=== PATIENT | male | born 1965 | race Caucasian/White ===

== ENCOUNTER 2017-03-02 19:09 | Emergency (ER) ==
[2017-03-02 19:27] VITALS: BP 122/78; TEMP 97.8; BMI 22.4
[2017-03-02 19:29] LABS: BILIRUBIN,URINE Negative (NEGATIVE); KETONES,URINE Negative (NEGATIVE); LEUKOCYTE ESTERASE ,URINE Trace (NEGATIVE); NITRITE,URINE Negative (NEGATIVE); PH,URINE 5.5 (5-9); PROTEIN,URINE Negative (NEGATIVE); URINE, BLOOD Negative (NEGATIVE)
[2017-03-02 19:35] LABS: ADD URINE MICROSCOPIC YES; BACTERIA,URINE TRACE (NOT PRESENT)
[2017-03-02 19:37] LABS: COCAIN SCREEN,URINE NEGATIVE (NEGATIVE)
[2017-03-02 19:45] LABS: BASOPHILS # (AUTO) 0.1 K/uL (0-0.2); BASOPHILS % (AUTO) 0.5 % (0.0-3.0); HEMATOCRIT 41.2 % (42.0-52.0); HEMOGLOBIN 14.1 g/dl (14.0-18.0); IMMATURE GRANULOCYTE % (AUTO) 0.2 % (0.0-5.0); LYMPHOCYTES # (AUTO) 4.8 K/uL (0.60-3.4); LYMPHOCYTES % (AUTO) 47.8 (10.0-50.0); MEAN CORPUSCULAR HEMOGLOBIN 29.9 pg (27.0-31.0); MEAN CORPUSCULAR HGB CONC 34.2 (31.8-35.4); MEAN CORPUSCULAR VOLUME 87.5 fl (80.0-94.0); MONOCYTES # (AUTO) 0.7 K/uL (0.4-2.0); MONOCYTES % (AUTO) 7.3 (0-10); NEUTROPHILS # (AUTO) 4.4 K/ul (2.0-6.9); NEUTROPHILS % (AUTO) 44.2; PLATELET COUNT 273 10^3/uL (140-440); RED BLOOD COUNT 4.71 10^6/ul (4.70-6.10); WHITE BLOOD COUNT 9.95 K/ul (4.2-10.2)
[2017-03-02 20:05] LABS: ALBUMIN 3.8 g/dL (3.4-5.0); ALBUMIN/GLOBULIN RATIO 1.12; BILIRUBIN,TOTAL 0.16 mg/dL (0.00-1.20); CALCIUM 9.1 mg/dL (8.2-10.2); CREATININE 0.94 mg/dL (0.60-1.10); TOTAL PROTEIN 7.2 g/dL (6.4-8.2)
[2017-03-02 20:06] LABS: BUN/CREATININE RATIO 15.95
--- NOTE | 2017-03-02 20:14 | ED.PDOC ---
General ED Provider: Dr. ARLETTE CERDA-ER Chief Complaint: Psychiatric Complaint Stated Complaint: i was told i didnt have long to live--i want to kill myself Time Seen by Physician: 19:15 Mode of Arrival: Walk-In Information Source: Patient, Police Exam Limitations: No limitations Nursing and Triage Documentation Reviewed and Agree: Yes Psychological Complaint Exam - Psychiatric Complaint/Exam Patient Complains Of: Present: Depression, Suicidal thoughts Onset/Duration: unkown Symptoms Are: Still present Timing: Constant Episodes Lasting: Hours Initial Severity: Moderate Current Severity: Moderate Character: Present: Depressed, Fearful, Anxious, Angry, Frustrated. Absent: Manic Aggravating: Reports: Recent stress, Alcohol use, Drug use Associated Signs And Symptoms: Reports: Hostile, Sleep disturbance. Denies: Confused, Hallucinating, Paranoid behavior, Appetite change Related History: Reports: Suicidal thoughts, Recent stressors, Drug ingestion. Denies: Suicidal plan, Suicidal gestures, Homicidal thoughts, Homicidal plan, Homicidal gestures Completed Suicide Risk Factors: Male, Patient Accompanied By: Police Patient In Custody Of Police: No Social Withdrawal Present: No Social Isolation Present: No Prior Suicide Attempt: No Injury From Prior Suicide Attempt: No Related Surgical History: Reports: None Patient Uncooperative For Exam: Yes Mood: Present: Depressed, Angry, Guarded, Agitated, Anxious Appearance: Present: Clean Thought Process: Present: Logical Insight: Present: Poor Memory: Intact Judgement: Normal Patient Medically Stable For: Psych evaluation, Referral, Transfer Differential Diagnoses: Bipolar Disorder, Depression, Intentional Drug OD, ETOH Intoxication, Suicide Attempt, Suicidal Ideation, Suicidal Gesture Review of Systems - Review Of Systems Constitutional: Reports: No symptoms Eyes: Reports: No symptoms Ears, Nose, Mouth, Throat: Reports: No symptoms Respiratory: Reports: No symptoms Cardiac: Reports: No symptoms GI: Reports: No symptoms : Reports: No symptoms Musculoskeletal: Reports: No symptoms Skin: Reports: No symptoms Neurological: Reports: No symptoms Endocrine: Reports: No symptoms Hematologic/Lymphatic: Reports: No symptoms All Other Systems: Reviewed and Negative Past Medical History - Past Medical History Endocrine: Reports: Unknown Cardiovascular: Reports: Unknown Respiratory: Reports: Unknown Hematological: Reports: Unknown Gastrointestinal: Reports: Unknown Genitourinary: Reports: Unknown Neuro/Psych: Reports: Unknown Musculoskeletal: Reports: Unknown Cancer: Reports: Unknown - Surgical History General Surgical History: Reports: Unknown - Family History Family History: Reports: Unknown - Social History Smoking Status: Current every day smoker Hx Substance Use: Yes (METHAMPHETAMINE) Alcohol Screening: Heavy - Immunizations Tetanus Shot up to Date: Yes Physical Exam - Physical Exam Appearance: Well-appearing, No pain distress, Well-nourished Eyes: ILANA, EOMI, Conjunctiva clear ENT: Ears normal, Nose normal, Oropharynx normal Neck: Supple Respiratory: Airway patent, Breath sounds clear, Breath sounds equal, Respirations nonlabored Cardiovascular: RRR, Pulses normal, No rub, No murmur GI/: Soft, Nontender, No masses, Bowel sounds normal, No Organomegaly Musculoskeletal: Normal strength, ROM intact, No edema, No calf tenderness Skin: Warm, Dry, Normal color Neurological: Sensation intact, Motor intact, Reflexes intact, Cranial nerves intact, Alert, Oriented Psychiatric: Affect appropriate, Anxious, Depressed Critical Care Note - Critical Care Note Total Time (mins): 0 Course - Course Hematology/Chemistry: 03/02/17 19:45 03/02/17 23:20 Orders, Labs, Meds: Lab Review 03/02/17 03/02/17 03/02/17 19:22 19:45 23:20 WBC 9.95 RBC 4.71 Hgb 14.1 Hct 41.2 L MCV 87.5 MCH 29.9 MCHC 34.2 RDW Coeff of Jackie 13.3 Plt Count 273 Immature Gran % (Auto) 0.2 Neut % (Auto) 44.2 Lymph % (Auto) 47.8 [place] % (Auto) 7.3 Eos % (Auto) 0.0 Baso % (Auto) 0.5 Immature Gran # (Auto) 0.0 Neut # 4.4 Lymph # 4.8 H [place] # 0.7 Eos # 0.0 Baso # 0.1 Sodium 136 140 Potassium 4.0 4.1 Chloride 104 107 Carbon Dioxide 22 22 Anion Gap 14.0 15.1 BUN 15 14 Creatinine 0.94 0.90 Estimated GFR (MDRD) 85.00 90.00 BUN/Creatinine Ratio 15.95 15.55 Glucose 101 H 91 Calcium 9.1 9.3 Total Bilirubin 0.16 0.17 AST 17 18 ALT 21 21 Alkaline Phosphatase 58 57 Total Protein 7.2 7.4 Albumin 3.8 3.9 Globulin 3.4 3.5 Albumin/Globulin Ratio 1.12 1.11 TSH 0.739 Urine Color Yellow Urine Clarity Clear Urine pH 5.5 Ur Specific [place] <=1.005 Urine Protein Negative Urine Glucose (UA) Negative Urine Ketones Negative Urine Blood Negative Urine Nitrite Negative Urine Bilirubin Negative Urine Urobilinogen 0.2 Ur Leukocyte Esterase Trace Urine Microscopic WBC 0-2 Ur Squamous Epith Cells Not present Urine Bacteria Trace Salicylate Level mg/dL < 5.0 Urine Opiates Screen Negative Ur Oxycodone Screen Negative Urine Methadone Screen Negative Ur Propoxyphene Screen Negative Acetaminophen < 3 L Ur Barbiturates Screen Negative U Tricyclic Antidepress Negative Ur Phencyclidine Scrn Negative Ur Amphetamine Screen Negative U Methamphetamines Scrn Negative U Benzodiazepines Scrn Negative Urine Cocaine Screen Negative U Cannabinoids Screen Negative Plasma/Serum Alcohol 221.8 H 152.2 H Orders Category Date Time Status EKG-(ED ONLY) Stat CARDIO 03/02/17 19:10 Completed Poison Control [ED POISON CONTROL CONTACTED] .ONCE EMERGENCY 03/02/17 20:38 Active BLOOD ALCOHOL Stat LAB 03/02/17 19:45 Completed BLOOD ALCOHOL Timed LAB 03/02/17 23:20 Completed CBC W/ AUTO DIFF Stat LAB 03/02/17 19:45 Completed COMPREHENSIVE METABOLIC PANEL Stat LAB 03/02/17 19:45 Completed COMPREHENSIVE METABOLIC PANEL Timed LAB 03/02/17 23:20 Completed SALICYLATE Stat LAB 03/02/17 19:45 Completed TSH [THYROID STIMULATING HORMONE] Stat LAB 03/02/17 19:45 Completed TYLENOL LEVEL [ACETAMINOPHEN] Stat LAB 03/02/17 19:45 Completed URINALYSIS C & S IF INDICATED Stat LAB 03/02/17 19:22 Completed URINE DRUG SCREEN (RAPID FOR ED) [DRUG SCREEN, URINE, LAB 03/02/17 19:22 Completed RAPID] Stat Acetaminophen [Tylenol] MEDS 03/02/17 23:49 Discontinued 650 mg PO ONCE STA Medications Discontinued Medications Generic Name Dose Route Start Last Admin Trade Name Freq PRN Reason Stop Dose Admin Acetaminophen 650 mg 03/02/17 23:49 03/03/17 00:11 Tylenol PO 03/02/17 23:50 650 mg ONCE STA Administration Vital Signs: Temp Pulse Resp BP Pulse Ox 03/02/17 19:09 97.8 F 83 20 122/78 96 Departure - Departure Time of Disposition: 00:38 Disposition: TSF SHORT-TRM HOSP Discharge Problem: Psychiatric diagnosis, Intoxication Instructions: Abuse of Alcohol (ED) Condition: Good Pt referred to PMD for follow-up: Yes Allergies/Adverse Reactions: Allergies No Known Allergies Allergy (Verified 03/02/17 19:27) Home Medications: Ambulatory Orders 1 [No Reported Medications] 03/02/17 Transfer Form Completed: Yes Disposition Discussed With: Patient, Family
[2017-03-02 20:25] LABS: ACETAMINOPHEN < 3 ug/ml (10-30); SALICYLATE < 5.0 mg/dL (2.8-20.0)
[2017-03-02] MEDS ORDERED: TYLENOL PO STA (23:49)
[2017-03-02 23:50] LABS: ALBUMIN 3.9 g/dL (3.4-5.0); ALBUMIN/GLOBULIN RATIO 1.11; ANION GAP 15.1; BILIRUBIN,TOTAL 0.17 mg/dL (0.00-1.20); BUN/CREATININE RATIO 15.55; CALCIUM 9.3 mg/dL (8.2-10.2); CREATININE 0.9 mg/dL (0.60-1.10); POTASSIUM 4.1 mmol/L (3.5-5.1); TOTAL PROTEIN 7.4 g/dL (6.4-8.2)
== END 2017-03-03 05:00 | disposition short-term general hospital (02) ==
LOC: ED 19:09
DX: F99 Mental disorder, not otherwise specified (principal); F10.129 Alcohol abuse with intoxication, unspecified; F17.210 Nicotine dependence, cigarettes, uncomplicated
CPT/HCPCS: 36415; 80053; 80306; 80307; 81001; 84443; 85025; 93005; 93010; 99285

== ENCOUNTER 2017-08-17 16:47 | Outpatient (CLI) | END 2017-08-17 16:48 | disposition short-term general hospital (02) | LOC: AMBL 16:47 | PROVIDERS: ATTEND Internal Medicine Geriatric Medicine | DX: R45.851 Suicidal ideations (principal); R44.0 Auditory hallucinations; R26.2 Difficulty in walking, not elsewhere classified ==

== ENCOUNTER 2017-09-10 14:53 | Emergency (ER) ==
[2017-09-10 15:05] VITALS: BP 140/97; TEMP 97.1; BMI 21.9
[2017-09-10 15:22] LABS: BASOPHILS # (AUTO) 0.1 K/uL (0-0.2); BASOPHILS % (AUTO) 0.4 % (0.0-3.0); HEMOGLOBIN 15.1 g/dl (14.0-18.0); IMMATURE GRANULOCYTE % (AUTO) 0.4 % (0.0-5.0); LYMPHOCYTES # (AUTO) 2.7 K/uL (0.60-3.4); LYMPHOCYTES % (AUTO) 20.7 (10.0-50.0); MEAN CORPUSCULAR HEMOGLOBIN 30.7 pg (27.0-31.0); MEAN CORPUSCULAR HGB CONC 35.1 (31.8-35.4); MEAN CORPUSCULAR VOLUME 87.4 fl (80.0-94.0); MONOCYTES # (AUTO) 1.2 K/uL (0.4-2.0); MONOCYTES % (AUTO) 9.4 (0-10); NEUTROPHILS % (AUTO) 69.1; PLATELET COUNT 223 10^3/uL (140-440); RED BLOOD COUNT 4.92 10^6/ul (4.70-6.10); WHITE BLOOD COUNT 13.03 K/ul (4.2-10.2)
[2017-09-10 15:41] LABS: BILIRUBIN,URINE 2+ (NEGATIVE); KETONES,URINE 1+ (NEGATIVE); LEUKOCYTE ESTERASE ,URINE Negative (NEGATIVE); NITRITE,URINE Negative (NEGATIVE); PH,URINE 5.5 (5-9); PROTEIN,URINE 3+ (NEGATIVE); URINE, BLOOD Trace-lysed (NEGATIVE)
[2017-09-10 15:42] LABS: ALBUMIN 4.2 g/dL (3.4-5.0); ALBUMIN/GLOBULIN RATIO 0.88; ANION GAP 20.1; BILIRUBIN,TOTAL 0.67 mg/dL (0.00-1.20); BUN/CREATININE RATIO 12.34; CALCIUM 10.5 mg/dL (8.2-10.2); CREATININE 1.62 mg/dL (0.60-1.10); POTASSIUM 4.1 mmol/L (3.5-5.1)
--- NOTE | 2017-09-10 15:49 | DI ---
EXAM: CHEST FRONTAL AND LATERAL VIEWS HISTORY: Cough. COMPARISON: None FINDINGS: Heart size and mediastinal contour within normal limits. No acute infiltrates. Normal vascularity with no pleural fluid or pneumothorax. The bony thorax has no acute finding. IMPRESSION: No acute process.
[2017-09-10 15:51] LABS: ADD URINE MICROSCOPIC YES
[2017-09-10 15:54] LABS: BACTERIA,URINE 1+ (NOT PRESENT); GRANULAR CASTS,URINE 0-2 (NOT PRESENT)
--- NOTE | 2017-09-10 16:27 | CT ---
EXAM: CT chest without contrast HISTORY: Cough COMPARISON: None TECHNIQUE: CT chest performed without intravenous contrast. Coronal and sagittal reformatted images obtained. FINDINGS: The thyroid and thoracic inlet appear normal. Heart normal in size. Coronary calcificati ons. No pericardial effusion. Aorta normal in caliber. Evaluation for lymphadenopathy limited with out contrast. No lymphadenopathy identified. Esophagus unremarkable. No acute abnormalities of the bones. Degenerative change in the spine. Please see separate report CT abdomen pelvis regarding fi ndings in the upper abdomen with right kidney not visualized, likely surgically absent. Central airw ay patent. No airspace consolidation. No pleural effusion. No pneumothorax. There is a 8 mm pulmo nary nodule right lung image 37. 3 mm pulmonary nodule left lung image 47. 5 mm pulmonary nodule rig ht lung image 39 appears linear on coronal imaging may represent fissural lymph node. IMPRESSION: 1. No acute cardiopulmonary process. 2. Several pulmonary nodules measuring up to [address] chest follow-up is recommended in 4 - 6 month s for reevaluation. Report faxed at time of dictation.
--- NOTE | 2017-09-10 16:31 | CT ---
Exam: CT of the abdomen and pelvis without intravenous contrast. Comparison: None available. Reason for exam: Pain with history of renal cancer. FINDINGS: Image interpretation is limited by the lack of intravenous contrast administration. 3 mm pleural-based nodule in the left lower lobe on axial image #3. No focal consolidation or pleura l effusion in the partially imaged lung bases. The liver, gallbladder, spleen, and left adrenal gland appear grossly unremarkable within limitations of a noncontrasted study. The right kidney and right adrenal gland have been removed. Atherosclerotic disease is seen within the aorta and distal arterial vasculature. No focal small bowel dilatation or transition point. There is a moderately-sized periumbilical hernia without evidence of obstruction. The appendix appear s grossly unremarkable. No intra-abdominal free air or pelvic free fluid. The bladder appears grossly unremarkable. No suspicious appearing lymph node enlargement. Degenerative disease is seen in the lumbosacral spine with intervertebral body disc space height loss at L5-S1. No suspicious appearing osteoblastic or osteolytic lesions. Impression: 1. No acute imaging findings are seen within the abdomen or pelvis. 2. 3 mm pleural-based nodule in the left lower lobe on axial image #3. Recommend follow up imaging and 3 months to document stability given patient history. 3. No imaging evidence is seen to suggest local recurrent or metastatic disease although evaluation is limited by the lack of intravenous contrast administration.
--- NOTE | 2017-09-10 16:40 | ED.PDOC ---
General ED Provider: Dr. ZOFIA IRIZARRY Chief Complaint: Non-specific Complaint Stated Complaint: 30pound weight loss Time Seen by Physician: 15:00 Mode of Arrival: Walk-In Information Source: Patient Exam Limitations: No limitations Nursing and Triage Documentation Reviewed and Agree: Yes Miscellaneous Complaint Exam - Complex/Multi-System Complaint/Exam Onset/Duration: 8 days , Symptoms Are: Still present Episodes Lasting: Days Initial Severity: Mild Current Severity: Mild Location of Pain: no pain Associated Signs and Symptoms: Reports: Cough, Vomiting, Diarrhea Recent Echo/LV Function: No Respiratory Distress: None JVD Present: No Tachypnea Present: No Stridor Present: No Abdominal Findings: Present: Normal findings Glascow Coma Scale (see protocol): 15 Meningeal Signs Positive: No Focal Weakness: Present: None Focal Sensory Loss: Present: None Gait: Normal Gag Reflex Present: Yes Differential Diagnosis: Other (renal mets ) Review of Systems - Review Of Systems Constitutional: Reports: Malaise ( weight loss in 8 months 30 pounds ) Eyes: Reports: No symptoms Ears, Nose, Mouth, Throat: Reports: No symptoms Respiratory: Reports: No symptoms Cardiac: Reports: No symptoms GI: Reports: Nausea, Vomiting : Reports: No symptoms Musculoskeletal: Reports: No symptoms Skin: Reports: No symptoms Neurological: Reports: No symptoms Endocrine: Reports: No symptoms Hematologic/Lymphatic: Reports: No symptoms All Other Systems: Reviewed and Negative Past Medical History - Past Medical History Previously Healthy: Yes Endocrine: Reports: Unknown Cardiovascular: Reports: Unknown Respiratory: Reports: Unknown Hematological: Reports: Unknown Gastrointestinal: Reports: Unknown Genitourinary: Reports: Unknown Neuro/Psych: Reports: Unknown Musculoskeletal: Reports: Unknown Cancer: Reports: Unknown - Surgical History General Surgical History: Reports: Unknown - Family History Family History: Reports: Unknown - Social History Smoking Status: Current every day smoker Hx Substance Use: Yes (METHAMPHETAMINE) Alcohol Screening: Heavy Physical Exam - Physical Exam Appearance: Well-appearing, No pain distress, Well-nourished Eyes: ILANA, EOMI, Conjunctiva clear ENT: Ears normal, Nose normal, Oropharynx normal Respiratory: Airway patent, Breath sounds clear, Breath sounds equal, Respirations nonlabored Cardiovascular: RRR, Pulses normal, No rub, No murmur GI/: Soft, Nontender, No masses, Bowel sounds normal, No Organomegaly Musculoskeletal: Normal strength, ROM intact, No edema, No calf tenderness Skin: Warm, Dry, Normal color Neurological: Sensation intact, Motor intact, Reflexes intact, Cranial nerves intact, Alert, Oriented Psychiatric: Affect appropriate, Mood appropriate Critical Care Note - Critical Care Note Total Time (mins): 0 Course - Course Hematology/Chemistry: 09/10/17 15:15 09/10/17 15:15 Orders, Labs, Meds: Lab Review 09/10/17 09/10/17 09/10/17 15:15 15:15 15:35 WBC 13.03 H RBC 4.92 Hgb 15.1 Hct 43.0 MCV 87.4 MCH 30.7 MCHC 35.1 RDW Coeff of Jackie 14.2 Plt Count 223 Immature Gran % (Auto) 0.4 Neut % (Auto) 69.1 Lymph % (Auto) 20.7 [place] % (Auto) 9.4 Eos % (Auto) 0.0 Baso % (Auto) 0.4 Immature Gran # (Auto) 0.1 Neut # 9.0 H Lymph # 2.7 Evans # 1.2 Eos # 0.0 Baso # 0.1 Sodium 132 L Potassium 4.1 Chloride 98 Carbon Dioxide 18 L Anion Gap 20.1 BUN 20 H Creatinine 1.62 H Estimated GFR (MDRD) 45.00 BUN/Creatinine Ratio 12.34 Glucose 83 Calcium 10.5 H Total Bilirubin 0.67 AST 26 ALT 17 Alkaline Phosphatase 102 Total Protein 9.0 H Albumin 4.2 Globulin 4.8 Albumin/Globulin Ratio 0.88 Urine Color Dark Urine Clarity Turbid Urine pH 5.5 Ur Specific [place] >=1.030 Urine Protein 3+ Urine Glucose (UA) Negative Urine Ketones 1+ Urine Blood Trace-lysed Urine Nitrite Negative Urine Bilirubin 2+ Urine Urobilinogen 1.0 Ur Leukocyte Esterase Negative Urine Microscopic RBC 0-2 Urine Microscopic WBC 2-5 Ur Squamous Epith Cells 2-5 Calcium Oxalate Crystal Trace Amorphous Sediment 1+ Urine Bacteria 1+ Hyaline Casts 0-2 Granular Casts 0-2 Orders Category Date Time Status CBC W/ AUTO DIFF Stat LAB 09/10/17 15:15 Completed COMPREHENSIVE METABOLIC PANEL Stat LAB 09/10/17 15:15 Completed LYME, WESTERN BLOT, SERUM Stat LAB 09/10/17 15:15 Received URINALYSIS C & S IF INDICATED Stat LAB 09/10/17 15:35 Completed URINE CULTURE Routine LAB 09/10/17 15:57 Received CHEST, 2 VIEWS PA & LAT Stat RADS 09/10/17 14:[address] ABDOMEN/PELVIS WO CONTRAST Stat RADS 09/10/17 15:[address] CHEST W/O CONTRAST Stat RADS 09/10/17 15:40 Completed Vital Signs: Temp Pulse Resp BP Pulse Ox 09/10/17 14:54 97.1 F L 114 H 20 140/97 H 97 Departure - Departure Time of Disposition: 16:41 (PULMONARY NODULE DISCUSSED WITH PT UNDERSTANDS HE NEEDS FOLLOW UP SANCHEZ . ) Disposition: HOME SELF-CARE Discharge Problem: Pulmonary nodule CKD (chronic kidney disease) Qualifiers: Chronic kidney disease stage: unspecified stage Qualified Code(s): N18.9 - Chronic kidney disease, unspecified Instructions: Pulmonary Nodules (ED), Chronic Kidney Disease (ED) Condition: Good Pt referred to PMD for follow-up: Yes Additional Instructions: Please call your Family Physician as soon as possible to schedule a follow-up appointment. Allergies/Adverse Reactions: Allergies No Known Allergies Allergy (Verified 09/10/17 15:02) Home Medications: Ambulatory Orders 1 [No Reported Medications] 03/02/17 Ibuprofen 800 - 1,000 mg PO 1-2XD PRN 09/10/17
[2017-09-13 13:13] LABS: IGG P18 AB Absent (.); IGG P23 AB Absent (.); IGG P28 AB Absent (.); IGG P30 AB Absent (.); IGG P39 AB Absent (.); IGG P41 AB Absent (.); IGG P45 AB Absent (.); IGG P58 AB Absent (.); IGG P66 AB Absent (.); IGG P93 AB Absent (.); IGM P39 AB Absent (.); IGM P41 AB Absent (.); LYME IGG WB INTERP Negative (.); LYME IGM WB INTERP Negative (.)
== END 2017-09-10 16:58 | disposition home or self-care (01) ==
LOC: ED 14:53
DX: N18.9 Chronic kidney disease, unspecified (principal); R91.1 Solitary pulmonary nodule; R63.4 Abnormal weight loss; R05 Cough; R11.10 Vomiting, unspecified; R19.7 Diarrhea, unspecified; F17.210 Nicotine dependence, cigarettes, uncomplicated
CPT/HCPCS: 36415; 80053; 81001; 85025; 86617; 87086; 99283

== ENCOUNTER 2017-09-10 19:26 | Outpatient (CLI) ==
[2017-09-10 15:05] VITALS: BMI 21.9
== END 2017-09-10 19:44 | disposition short-term general hospital (02) ==
LOC: AMBL 19:26
PROVIDERS: ATTEND Internal Medicine Geriatric Medicine
DX: R07.9 Chest pain, unspecified (principal); R61 Generalized hyperhidrosis; F32.9 Major depressive disorder, single episode, unspecified

== ENCOUNTER 2018-01-30 08:07 | Inpatient (IN) ==
[2018-01-30] MEDS ORDERED: VALIUM SYRINGE IVP STA (08:20)
[2018-01-30] MEDS ORDERED: ROCEPHIN 1 GM in SODIUM CHLORIDE 50 ML IV STA (08:21)
[2018-01-30] MEDS ORDERED: DOXY-100 100 MG in SODIUM CHLORIDE 100 ML IV STA (08:21)
[2018-01-30] MEDS ORDERED: FOLIC ACID 1 MG, INFUVITE ADULT 10 ML, THIAMINE 100 MG in SODIUM CHLORIDE 1,000 ML IV SCH ×2 (08:30→18:42)
--- NOTE | 2018-01-30 09:02 | DI ---
It Kartik: Two x-rays of the chest. Comparison: CT chest performed 09/10/2017. Reason for exam: Cough. FINDINGS: No pneumothorax, pleural effusion, or focal consolidation. The cardiac silhouette is not enlarged. The imaged osseous structures appear grossly unremarkable without acute fracture. Impression: No acute cardiopulmonary process.
[2018-01-30] MEDS ORDERED: ROCEPHIN ONE (09:20)
--- NOTE | 2018-01-30 09:54 | ED.PDOC ---
General ED Provider: Dr. ZOFIA IRIZARRY Chief Complaint: Non-specific Complaint Stated Complaint: WEAKNESS, TICK BITES , ALCOHOL ABUSE Time Seen by Physician: 08:11 (SEEN WITH [facility] AT ALL TIMES HAS BEEN CAMPING X4 DAYS ) Information Source: Patient Exam Limitations: No limitations (HAS REMOVED SEVERAL TICKS OFF HIS BODY ADMITT TO DRINKING HEAVILY ) Referred to ED by: Other Nursing and Triage Documentation Reviewed and Agree: Yes Reviewed sepsis parameters & appropriate labs ordered?: Yes (ALSO HAS HAD SICIDAL IDEATION WITH IN THE PAST WEEK ) System Inflammatory Response Syndrome: Not Applicable Sepsis Protocol: For patient's 13 years and over: Temp is 96.8 and below OR 101 and greater Pulse >90 BPM Resp >20/minute Acutely Altered Mental Status Are patient's symptoms suggestive of a new infection, such as: -Pneumonia -Skin, Soft Tissue -Endocarditis -UTI -Bone, Joint Infection -Implantable Device -Acute Abdominal Infection -Wound Infection -Meningitis -Blood Stream Catheter Infection -Unknown System Inflammatory Response Syndrome: Not Applicable Miscellaneous Complaint Exam - Complex/Multi-System Complaint/Exam Onset/Duration: ABOUT 4 DAYS Symptoms Are: Still present Episodes Lasting: Days Initial Severity: Mild Current Severity: Mild Location of Pain: NO PAIN GENERALIZED FATIGUE POOR PO INTAKE SOME DRINKING Pain Radiates to: NO PAIN Associated Signs and Symptoms: Reports: Weakness, Cough. Denies: Decreased responsiveness, Confusion, Agitation, Dizziness, Syncope, Headache, Short of air , Wheezing, Hemoptysis, Chest pain, Palpitations, Edema, Nausea, Vomiting, Diarrhea, Abdominal pain, Back pain, Dysuria, Hematemesis, Melena, Decreased oral intake, Fever, Diaphoresis, Immunocompromised, Anticoagulation Therapy, Recent medication changes, Indwelling medical billing assistant, Prior MRSA, Prior VRE, Recent trauma, Remote trauma Recent Echo/LV Function: No Respiratory Distress: None JVD Present: No Tachypnea Present: No Stridor Present: No Abdominal Findings: Present: Normal findings Glascow Coma Scale (see protocol): 15 Meningeal Signs Positive: No Focal Weakness: Present: None Focal Sensory Loss: Present: None Gait: Normal Gag Reflex Present: Yes Babinski Sign: Negative Right, Negative Left Skin Findings: Present: Normal findings Joint Swelling Present: No In-Dwelling Device Present: No Differential Diagnosis: Metabolic Abnormality, Other (TICK BITE , ) Quality Indicators for Cardiac Chest Pain: EKG in 10min. Quality Indicators for AMI: EKG in 10min. Quality Indicators For Pneumonia/CAP: Antibiotics in 6hr-admit, Empiric Antibiotic Rx, Vital signs, Mental status assessed Quality Indicator For Non-Traumatic Chest Pain/Syncope: EKG Performed Review of Systems - Review Of Systems Constitutional: Reports: Chills, Malaise Eyes: Reports: No symptoms Ears, Nose, Mouth, Throat: Reports: No symptoms Respiratory: Reports: Cough Cardiac: Reports: No symptoms GI: Reports: No symptoms : Reports: No symptoms Musculoskeletal: Reports: No symptoms Skin: Reports: Other (TICK BITES ) Neurological: Reports: No symptoms Endocrine: Reports: No symptoms Hematologic/Lymphatic: Reports: No symptoms All Other Systems: Reviewed and Negative Past Medical History - Past Medical History Previously Healthy: Yes Endocrine: Reports: Unknown Cardiovascular: Reports: Unknown Respiratory: Reports: Unknown Hematological: Reports: Unknown Gastrointestinal: Reports: Unknown Genitourinary: Reports: Unknown Neuro/Psych: Reports: Unknown Musculoskeletal: Reports: Unknown Cancer: Reports: Unknown - Surgical History General Surgical History: Reports: Unknown - Family History Family History: Reports: Unknown - Social History Smoking Status: Current every day smoker, Heavy tobacco smoker Hx Substance Use: Yes (METHAMPHETAMINE YEARS AGO) Alcohol Screening: Heavy Physical Exam - Physical Exam Appearance: Ill-appearing Ill-appearing: Mild Pain Distress: Mild Eyes: ILANA, EOMI, Conjunctiva clear ENT: Ears normal, Nose normal, Oropharynx normal Respiratory: Airway patent, Breath sounds clear, Breath sounds equal, Respirations nonlabored Cardiovascular: RRR, Pulses normal, No rub, No murmur GI/: Soft, Nontender, No masses, Bowel sounds normal, No Organomegaly Musculoskeletal: Normal strength, ROM intact, No edema, No calf tenderness Skin: Warm, Dry (INSECT BITES ON ANT ABDOMINAL WALL SEE PHOTOS) Neurological: Sensation intact, Motor intact, Reflexes intact, Cranial nerves intact, Alert, Oriented Psychiatric: Affect appropriate, Mood appropriate Re-Evaluation - Re-Evaluation Time of Re-Evaluation: 10:00 Status: Unchanged Vital Signs Stable: Yes Pain Level: 0 Appearance: NAD Lungs: Clear Skin: Warm and Dry Neuro: Alert and Oriented X3 CV: RRR Physician Notification - Case Discussed Physician Notified: MOREJON Time of Notification: 10:00 Admit To: Inpatient Critical Care Note - Critical Care Note Total Time (mins): 0 Course - Course Hematology/Chemistry: 01/30/18 08:35 01/30/18 08:35 Orders, Labs, Meds: Lab Review 01/30/18 01/30/18 01/30/18 08:35 08:35 08:41 WBC 15.05 H RBC 4.46 L Hgb 13.7 L Hct 39.1 L MCV 87.7 MCH 30.7 MCHC 35.0 RDW Coeff of Jackie 12.9 Plt Count 263 Immature Gran % (Auto) 0.3 Neut % (Auto) 74.1 Lymph % (Auto) 19.7 [place] % (Auto) 5.5 Eos % (Auto) 0.0 Baso % (Auto) 0.4 Immature Gran # (Auto) 0.0 Neut # (Auto) 11.2 H Lymph # (Auto) 3.0 [place] # (Auto) 0.8 Eos # (Auto) 0.0 Baso # (Auto) 0.1 Puncture Site Rr O2 Saturation 98.0 ABG pH 7.420 ABG pCO2 30.6 L ABG pO2 100.0 ABG HCO3 19.9 L ABG Total CO2 21 L ABG Base Excess -5 L Riccardo Test + FiO2 % 21.0 Sodium 134 L Potassium 4.2 Chloride 99 Carbon Dioxide 18 L Anion Gap 21.2 BUN 21 H Creatinine 0.80 Estimated GFR (MDRD) 102.00 BUN/Creatinine Ratio 26.25 Glucose 66 L Calcium 8.8 Total Bilirubin 0.5 AST 28 ALT 27 Alkaline Phosphatase 74 Total Protein 7.4 Albumin 3.7 Globulin 3.7 Albumin/Globulin Ratio 1.00 TSH 1.064 Free T4 0.94 Urine Color Urine Clarity Urine pH Ur Specific [place] Urine Protein Urine Glucose (UA) Urine Ketones Urine Blood Urine Nitrite Urine Bilirubin Urine Urobilinogen Ur Leukocyte Esterase Urine Microscopic WBC Ur Squamous Epith Cells Urine Bacteria Hyaline Casts Plasma/Serum Alcohol 11.6 01/30/18 08:55 WBC RBC Hgb Hct MCV MCH MCHC RDW Coeff of Jackie Plt Count Immature Gran % (Auto) Neut % (Auto) Lymph % (Auto) [place] % (Auto) Eos % (Auto) Baso % (Auto) Immature Gran # (Auto) Neut # (Auto) Lymph # (Auto) [place] # (Auto) Eos # (Auto) Baso # (Auto) Puncture Site O2 Saturation ABG pH ABG pCO2 ABG pO2 ABG HCO3 ABG Total CO2 ABG Base Excess Riccardo Test FiO2 % Sodium Potassium Chloride Carbon Dioxide Anion Gap BUN Creatinine Estimated GFR (MDRD) BUN/Creatinine Ratio Glucose Calcium Total Bilirubin AST ALT Alkaline Phosphatase Total Protein Albumin Globulin Albumin/Globulin Ratio TSH Free T4 Urine Color Yellow Urine Clarity Clear Urine pH 5.5 Ur Specific [place] >=1.030 Urine Protein 3+ Urine Glucose (UA) Negative Urine Ketones 2+ Urine Blood Trace-lysed Urine Nitrite Negative Urine Bilirubin Negative Urine Urobilinogen 0.2 Ur Leukocyte Esterase Negative Urine Microscopic WBC 0-2 Ur Squamous Epith Cells 2-5 Urine Bacteria 1+ Hyaline Casts 0-2 Plasma/Serum Alcohol Orders Category Date Time Status ABG DRAW REQUEST Stat CARDIO 01/30/18 08:12 Completed EKG-(ED ONLY) Stat CARDIO 01/30/18 08:11 Completed ED IV/MEDIPORT/POWERPORT .ONCE EMERGENCY 01/30/18 08:17 Active ABG Stat LAB 01/30/18 08:41 Completed BLOOD ALCOHOL Stat LAB 01/30/18 08:35 Completed BLOOD CULTURE (ED ONLY) Stat LAB 01/30/18 08:35 Received CBC W/ AUTO DIFF Stat LAB 01/30/18 08:35 Completed COMPREHENSIVE METABOLIC PANEL Stat LAB 01/30/18 08:35 Completed FLU A/B MOLECULAR Stat LAB 01/30/18 08:17 Ordered FREE T4 (FREE THYROXINE) Stat LAB 01/30/18 08:35 Completed LYME, WESTERN BLOT, SERUM Stat LAB 01/30/18 08:35 Received MOLECULAR GROUP A STREP Stat LAB 01/30/18 08:17 Ordered PROCALCITONIN Stat LAB 01/30/18 08:35 Received [place] SPOTTED FEVER,IgG Stat LAB 01/30/18 08:35 Received [place] SPOTTED FEVER,IgM Stat LAB 01/30/18 08:35 Received THYROID STIMULATING HORMONE Stat LAB 01/30/18 08:35 Completed URINALYSIS C & S IF INDICATED Stat LAB 01/30/18 08:55 Completed URINE CULTURE Stat LAB 01/30/18 08:55 Received 0.9 % Sodium Chloride [Saline Flush] MEDS 01/30/18 08:17 Active 1 syr IVF PRN PRN Ceftriaxone Sodium [Rocephin] MEDS 01/30/18 09:20 Discontinued 1 gm .ROUTE .STK-MED ONE Ceftriaxone Sodium [Rocephin] 1 gm MEDS 01/30/18 08:21 Discontinued 0.9 % Sodium Chloride [Sodium Chloride] 50 ml IV ONCE Diazepam Syringe [Valium Syringe] MEDS 01/30/18 08:20 Discontinued 2 mg IVP ONCE STA Doxycycline Hyclate Inj [Doxy-100] 100 mg MEDS 01/30/18 08:21 Active 0.9 % Sodium Chloride [Sodium Chloride] 100 ml IV ONCE Sodium Chloride 0.9% [Sodium Chloride] 1,000 ml MEDS 01/30/18 08:30 Active Folic Acid 1 mg Mvi, Adult No.1 with Vit K [Infuvite Adult] 10 ml Vitamin B-1 Inj [Thiamine] 100 mg IV 125 mls/hr CHEST, 2 VIEWS PA & LAT Stat RADS 01/30/18 08:11 Completed Medications Generic Name Dose Route Start Last Admin Trade Name Freq PRN Reason Stop Dose Admin Folic Acid 1 mg/ Multivitamins 1,011.2 mls @ 125 mls/hr 01/30/18 08:30 /Minerals 10 ml/ Thiamine HCl IV 100 mg/ Sodium Chloride .Q8H6M CRISTY Doxycycline Hyclate 100 mg/ 100 mls @ 50 mls/hr 01/30/18 08:21 Sodium Chloride IV 01/30/18 10:20 ONCE STA Sodium Chloride 1 syr 01/30/18 08:17 01/30/18 09:30 Saline Flush IVF 1 syr PRN PRN Administration To flush IV Discontinued Medications Generic Name Dose Route Start Last Admin Trade Name Freq PRN Reason Stop Dose Admin Diazepam 2 mg 01/30/18 08:20 01/30/18 09:29 Valium Syringe IVP 01/30/18 08:21 2 mg ONCE STA Administration Ceftriaxone Sodium 1 gm/ 50 mls @ 75 mls/hr 01/30/18 08:21 01/30/18 09:47 Sodium Chloride IV 01/30/18 09:00 75 mls/hr ONCE STA Administration Vital Signs: Temp Pulse Resp BP Pulse Ox 01/30/18 08:09 98.0 F 105 H 20 144/79 H 95 Departure - Departure Time of Disposition: 10:00 (SEEN WITH RN AT ALL TIMES ) Disposition: ADMITTED INPATIENT Discharge Problem: Dehydration Tick bite Qualifiers: Encounter type: initial encounter Qualified Code(s): W57.XXXA - Bitten or stung by nonvenomous insect and other nonvenomous arthropods, initial encounter Instructions: Tick Bite (ED), Lyme Disease (ED), Insect Bite or Sting (ED), [place] Spotted Fever (ED) Condition: Good Pt referred to PMD for follow-up: Yes IPMP verified?: No Additional Instructions: Please call your Family Physician as soon as possible to schedule a follow-up appointment. Allergies/Adverse Reactions: Allergies No Known Allergies Allergy (Verified 09/10/17 15:02) Home Medications: Ambulatory Orders 1 [No Reported Medications] 03/02/17 Ibuprofen 800 - 1,000 mg PO 1-2XD PRN 09/10/17 Disposition Discussed With: Patient
[2018-01-30] MEDS ORDERED: NIX LICE TREATMENT TP STA (10:08)
[2018-01-30 11:45] VITALS: BMI 24.9
[2018-01-30] MEDS ORDERED: ELIMITE CREAM TP ONE (12:30)
[2018-01-30] MEDS: TAMIFLU PO SCH (20:41)
[2018-01-30] MEDS: DOXYCYCLINE HYCLATE PO SCH (20:41)
[2018-01-31] MEDS ORDERED: INFUVITE ADULT IV ONE (00:59)
[2018-01-31] MEDS ORDERED: THIAMINE ONE (01:10)
[2018-01-31] MEDS ORDERED: FOLIC ACID ONE ×2 (01:11→01:20)
[2018-01-31 05:04] VITALS: BP 131/70; TEMP 98
[2018-01-31] MEDS: TAMIFLU PO SCH (08:31)
[2018-01-31] MEDS: DOXYCYCLINE HYCLATE PO SCH (08:31)
[2018-01-31] MEDS ORDERED: ROCEPHIN 1 GM in SODIUM CHLORIDE 50 ML IV SCH (09:00)
--- NOTE | 2018-01-31 10:41 | CM.DICTOOL ---
ADMISSION: 01/30/18 10:18 DISCHARGE: 01/31/18 FINAL DIAGNOSIS FLU B DEHYDRATION (ACUTE) TICK BITES (ACUTE) HISTORY OF: S/P TONSILLECTOMY COPD/SMOKER GERD S/P CHOLECYSTECTOMY S/P RT NEPHRECTOMY 2009 R/T RENAL CELL CARCINOMA KIDNEY STONES OSTEOARTHRITIS BIPOLAR DEPRESSION - NO SUICIDAL OR HOMICIDAL IDEAS ANXIETY ADHD HX OF METHAMPHETAMINE USE HX OF ALCOHOL ABUSE LAST VITALS Temp Pulse Resp BP Pulse Ox 98.0 F 76 20 131/70 97 01/31/18 05:03 01/31/18 05:03 01/31/18 05:03 01/31/18 05:03 01/31/18 05:03 ACTIVE HOME MEDICATIONS IBUPROFEN 800-1000MG PO 1-2X DAY PRN ALLERGIES No Known Allergies Allergy (Verified 09/10/17 15:02) NEW PRESCRIPTIONS: NEW MEDICATIONS: 1. DOXYCYCLINE 100MG TAKE 1 CAPSULE 2 TIMES A DAY FOR 7 DAYS. TAKE UNTIL ALL GONE. 2. TAMIFLU 75MG TAKE 1 TABLET 2 TIMES A DAY FOR 5 DAYS. SMOKING: SMOKING CESSATION EDUCATION. DISEASE SPECIFIC EDUCATION: DEHYDRATION AVOIDANCE OF TICK BITES FLU TREATMENT INCLUDING MEDICATION, NEED TO REST AND FLUIDS AVOID ASA, IBUPROFEN AND NSAIDS MEDICATION IMPORTANCE OF FOLLOW APPOINTMENT IMPORTANCE OF REST LAB REVIEW: 01/31/18 05:30 01/31/18 05:30 01/31/18 05:30: Sodium 139, Potassium 4.4, Chloride 106, Carbon Dioxide 23, Anion Gap 14.4, BUN 16, Creatinine 0.85, Estimated GFR (MDRD) 95.00, BUN/ Creatinine Ratio 18.82, Glucose 100, Calcium 9.0, Total Bilirubin 0.6, AST 25, ALT 27, Alkaline Phosphatase 67, Total Protein 6.7, Albumin 3.4, Globulin 3.3, Albumin/Globulin Ratio 1.03 01/31/18 05:30: WBC 8.66 D, RBC 4.40 L, Hgb 13.6 L, Hct 38.5 L, MCV 87.5, MCH 30.9, MCHC 35.3, RDW Coeff of Jackie 12.8, Plt Count 256, Immature Gran % (Auto) 0.1, Neut % (Auto) 53.4, Lymph % (Auto) 37.1, [place] % (Auto) 9.1, Eos % (Auto) 0.0, Baso % (Auto) 0.3, Immature Gran # (Auto) 0.0, Neut # (Auto) 4.6, Lymph # ( Auto) 3.2, [place] # (Auto) 0.8, Eos # (Auto) 0.0, Baso # (Auto) 0.0 PLAN: DISCHARGE HOME TODAY 01/31/18 NEW MEDICATIONS: 1. DOXYCYCLINE 100MG TAKE 1 CAPSULE 2 TIMES A DAY FOR 7 DAYS. TAKE UNTIL ALL GONE. 2. TAMIFLU 75MG TAKE 1 TABLET 2 TIMES A DAY FOR 5 DAYS. DIET TOLERATED. EAT GOOD. DRINK PLENTY OF FLUIDS ESPECIALLY WATER. GRADUALLY RESUME ACTIVITY. REST FREQUENTLY. AVOID CROWDS. DO NOT TAKE ASPIRIN, IBUPROFEN OR NSAIDS. MAY TAKE TYLENOL. FOLLOW UP WITH Roselia CASPER ON SaturdayJanuary AT 9AM. CALL IF UNABLE TO KEEP APPOINTMENT. [phone]. GET MEDICAL COLLECTIONS REPRESENTATIVE/NPA. FOLLOW UP WITH DR. RICHARDS PER SCHEDULED. REFUSED HELP FOR ALCOHOL ABUSE FULL CODE SITTING UP IN BED. ALERT AND ORIENTED X 4. STATES FEELING GREAT. DR. MOREJON IN TO SEE PATIENT. PATIENT STATES HE FEELS "GREAT AND WANTS TO GO HOME." PLAN OF CARE DISCUSSED PER DR. MOREJON INCLUDING DISCHARGE INFORMATION. PATIENT VERBALIZES UNDERSTANDING AND AGREEMENT. VITAL SIGNS ARE STABLE. HAS BEEN AFEBRILE. POX 97% ON ROOM AIR. NEUROS HAVE BEEN NORMAL. REMAINS ON DROPLET PRECAUTIONS. HEART TONES ARE REGULAR WITH TELEMETRY REVEALING SINUS RHYTHM. LUNGS CLEAR WITH DIMINISHED BREATH SOUNDS. HAS NON-PRODUCTIVE COUGH. ABDOMEN IS SOFT, NON-TENDER WITH BOWEL SOUNDS POSITIVE IN ALL 4 QUADS. PEDAL PULSES EQUAL WITHOUT EDEMA. HAS NUMEROUS BITES TO CHEST AND ABDOMEN - NO OPEN AREAS, DRAINAGE OR ITCHING NOTED. HAS IV OF NORMAL SALINE WITH MVI/FOLIC ACID/THIAMINE AT 100ML/HR IN RIGHT HAND. DR. JM MOREJON MD [place] TOBIN APRN
--- NOTE | 2018-02-04 11:46 | PN ---
DATE OF SERVICE: 01/31/18 - DISCHARGE NOTE SUBJECTIVE: The patient is up and about, feeling good and wants to go home. No fever, no chills. REVIEW OF SYSTEMS: CONSTITUTIONAL: No night sweats. No fatigue, malaise, lethargy. No fever or chills. HEENT: Eyes: No visual changes. No eye pain. No eye discharge. ENT: No runny nose. No epistaxis. No sinus pain. No sore throat. No odynophagia. No congestion. RESPIRATORY: No cough, no congestion. No hemoptysis. No shortness of breath. CARDIOVASCULAR: No angina symptoms. No CHF symptoms. No atypical chest pain for CAD. No palpitations. No orthopnea. GASTROINTESTINAL: No abdominal pain. No nausea or vomiting. No diarrhea or constipation. No hematemesis. No hematochezia. GENITOURINARY: No urgency. No frequency. No dysuria. No hematuria. No obstructive symptoms. No discharge. No pain. No significant abnormal bleeding. MUSCULOSKELETAL: No musculoskeletal pain; no joint swelling. NEUROLOGICAL: No headache. No neck pain. No syncope. No seizures. No dizziness. PSYCHIATRIC: Not anxious. No depression. No suicidal thoughts. No homicidal thoughts. SKIN: No rash. No lesions. No wounds. ENDOCRINE: No unexplained weight loss. No weight gain. HEMATOLOGIC/LYMPHATIC: No anemia. No purpura. No petechiae. No prolonged or excessive bleeding. No palpable lymph nodes. PHYSICAL EXAMINATION: GENERAL: The patient is oriented to time, place and person. VITAL SIGNS: Temperature 98, pulse 76, respiratory rate 20, BP 131/70, pulse ox 97%. HEENT: Head normocephalic, atraumatic. Eyes: Extraocular muscles are intact. Pupils are equal, round and reactive to light and accommodation. Ears: No lesions. Nose appeared normal. Throat: No exudate or erythema. NECK: Supple. No JVD, no carotid bruit. No lymphadenopathy or thyromegaly. LUNGS: Decreased breath sounds but clear to auscultation. Percussion note normal. Chest symmetrical. HEART: S1, S2, no S3. No murmurs. No cyanosis or clubbing. No ascites. Pulses: Dorsalis pedis and posterior tibial pulses +1 to +2 both sides. ABDOMEN: Soft. Nontender. Bowel sounds active. No CVA tenderness. No mass felt. EXTREMITIES: No edema. Full range of motion of all extremities, equal. NEUROLOGIC: No focal deficit. Cranial nerves II through XII are grossly intact. No headache, no double vision or headache. SKIN: Not dry. Intact. Turgor - normal. LYMPHATIC: No palpable lymph nodes/no lymphedema. MUSCULOSKELETAL: Normal joints with no swelling. Muscle tone is normal. ASSESSMENT: 1. FLU SYNDROME WITH INFLUENZA B POSITIVE 2. DEHYDRATION SEEMS TO HAVE RESOLVED WITH GOOD SKIN TURGOR 3. HISTORY OF TICK BITES, NO EVIDENCE OF ANY OTHER PROBLEMS RELATED TO TICK BITES. THE PATIENT WAS EXPLAINED ABOUT LYME'S DISEASE AND THE SYMPTOMS AND ALSO EXPLAINED ABOUT [place] SPOTTED FEVER AND DIFFERENT SYMPTOMS OF [place]RLICH[place]. PLAN: 1. Discharge the patient home on Doxycycline for 7 days. 2. Drink plenty of fluids. 3. Rest. 4. Also give Tamiflu for Influenza B. 5. The patient is strongly advised to followup with Gladis Long on Saturday. 6. Also advised to get primary M.D. TIME SPENT: More than 30 minutes. Plan and coordination of the patient's care discussed in the presence of nurse. RAE
--- NOTE | 2018-02-04 11:58 | DS ---
DATE OF SERVICE: 01/31/18 FINAL DIAGNOSIS: 1. FLU B 2. DEHYDRATION (ACUTE) 3. TICK BITES (ACUTE) 4. HISTORY OF - STATUS POST TONSILLECTOMY 5. COPD/SMOKER 6. GERD 7. STATUS POST CHOLECYSTECTOMY 8. STATUS POST RIGHT NEPHRECTOMY 2009, RIGHT RENAL CELL CARCINOMA 9. KIDNEY STONES 10. OSTEOARTHRITIS 11. BIPOLAR 12. DEPRESSION - NO SUICIDAL OR HOMICIDAL IDEAS 13. ANXIETY 14. ADHD 15. HISTORY OF METHAMPHETAMINE USE 16. HISTORY OF ALCOHOL ABUSE LAST V/S: Temperature 98.0, pulse 76, respiratory rate 20, BP 131/70, pulse ox 97 DISCHARGE INSTRUCTIONS: 1. Followup appointment with Gladis Long on Saturday, February 03, 2018 at 9 a.m. Call if unable to keep appointment. Get primary care M.D./NPA 2. Followup with Dr. Ellison as per scheduled. 3. Refused help for alcohol abuse. 4. Drink plenty of fluids especially water. 5. Do not take Aspirin, Ibuprofen or NSAIDS. 6. May take Tylenol. NEW PRESCRIPTIONS: Doxycycline 100 mg take one capsule two times a day for 7 days. Take until all gone. Tamiflu 75 mg take one tablet two times a day for 5 days. DIET INSTRUCTIONS: As tolerated. Eat good. ACTIVITY: Gradually resume activity. Rest frequently. Avoid crowds. SMOKING: Smoking cessation education DISEASE SPECIFIC EDUCATION: Dehydration Avoidance of tick bites Flu treatment including medication, need to rest and fluids Avoid ASA, Ibuprofen and NSAIDS Medication Importance of followup appointment Importance of rest HOSPITAL COURSE: 52-year-old white male was hospitalized with flu type of symptoms. The patient also had a lot of tick bites. The patient was treated with IV fluids, Doxycycline, Rocephin were given for two days and also on discharge, Doxycycline given for 7 days. The patient had influenza B positive. The patient' s lungs were clear. He was afebrile at the time of discharge. He was up and about. There was no rash. Appetite was excellent. The patient has history of depression and bipolar disease. The patient, during the stay in the hospital, did not have any suicidal ideation or homicidal ideations. Thought process was normal. His behavior was normal. He did not have any DTs. He said at times he drinks heavy but lately he hasn't been. The patient is discharged in stable condition to be followed by Gladis Caldwell, strongly advised to get primary care provider. He is strongly advised not to take any nonsteroidal antiinflammatory because of his kidney problems. Also advised him to followup with Dr. Ellison. CONDITION AT TIME OF DISCHARGE: Stable. TIME SPENT: More than 60 minutes. RAE
--- NOTE | 2018-02-04 12:45 | PN ---
CODING FOR BILLIN01/30/18 LEVEL 5 01/31/18 DISCHARGE MTDD
--- NOTE | 2018-02-04 13:27 | HP ---
DATE OF SERVICE: 01/30/18 REASON FOR HOSPITALIZATION/HISTORY OF PRESENT ILLNESS: 52 year old white male came to the emergency room with nonspecific complaints; weakness. The patient also had a lot of tick bites. Duration of symptoms two days. The patient has been camping for two days and had a lot of tick bites. The patient also has history of alcohol abuse off and on but the patient was not drunk when he was in the emergency room. When I interviewed the patient in the room 101 bed 1 the bed didn't have any complaints except for feeling weak and tired. PAST MEDICAL HISTORY/PAST SURGICAL HISTORY: Right nephrectomy for renal cell carcinoma in 2008. Tonsillectomy Cholecystectomy Osteoarthritis Bipolar Depression Anxiety COPD GERD Kidney stones ADHD History of methamphetamine use REVIEW OF SYSTEMS: CONSTITUTIONAL: No night sweats. No fever or chills. Weakness and fatigue. HEENT: Eyes: No visual changes. No eye pain. No eye discharge. ENT: No runny nose. No epistaxis. No sinus pain. No sore throat. No odynophagia. No ear pain. No congestion. RESPIRATORY: No cough, no congestion. No hemoptysis. No shortness of breath. CARDIOVASCULAR: No angina symptoms. No CHF symptoms. No atypical chest pain for CAD. No palpitations. No orthopnea. GASTROINTESTINAL: No abdominal pain. No nausea or vomiting. No diarrhea or constipation. No hematemesis. No hematochezia. Appetite has been somewhat decreased past couple of days. GENITOURINARY: No urgency. No frequency. No dysuria. No hematuria. No obstructive symptoms. No discharge. No pain. No significant abnormal bleeding. MUSCULOSKELETAL: No musculoskeletal pain. No joint swelling. No arthritis. Generalized aches and pains for past two days. NEUROLOGICAL: No headache. No neck pain. No syncope. No seizures. No dizziness. PSYCHIATRIC: Anxious at times. No depression. No suicidal thoughts. No homicidal thoughts. In the emergency room it is noted that the patient has had suicidal idea but he declined that he doesn't have any of those type of feelings. Mentioned he felt like it because he was feeling so tired and worn out that is why he went for camping but he continued to feel bad. SKIN: No rash. No lesions. No wounds. ENDOCRINE: No unexplained weight loss. No weight gain. HEMATOLOGIC/LYMPHATIC: No anemia. No purpura. No petechiae. No prolonged or excessive bleeding. No palpable lymph nodes. PERSONAL/FAMILY/SOCIAL HISTORY: The patient is living by himself. Smokes more than half a pack a day. Drinks alcohol at times in excess. Worked for the [employer] in [place]. No real past hospitalization for any psychiatric illness. The patient says that he has arthritic type of pain for which he took Ibuprofen. Also had right nephrectomy for renal cell carcinoma in 2008. He is being seen by Dr. Esau Ellison twice a year for past many years he says he doesn't have any primary doctor. MEDICATIONS: Ibuprofen ALLERGIES: No known allergies. PHYSICAL EXAMINATION: GENERAL: The patient is oriented to time, place and person. VITAL SIGNS: Temperature 98.3, pulse 90, respiratory rate 16, blood pressure 136/78 and pulse ox 97%. HEENT: Head normocephalic, atraumatic. Eyes: Extraocular muscles are intact. Pupils are equal, round and reactive to light and accommodation. Ears: No lesions. Nose appeared normal. Throat: No exudate or erythema. NECK: Supple. No JVD, no carotid bruit. No lymphadenopathy or thyromegaly. LUNGS: Clear to auscultation. Percussion note normal. Chest symmetrical. HEART: S1, S2, no S3. No murmurs. No cyanosis or clubbing. No ascites. Pulses: Dorsalis pedis and posterior tibial pulses +1 to +2 both sides. ABDOMEN: Soft. Nontender. Bowel sounds active. No CVA tenderness. No mass felt. EXTREMITIES: No edema. Full range of motion of all extremities, equal. NEUROLOGIC: No focal deficit. Cranial nerves II through XII are grossly intact. No headache, no double vision or headache. SKIN: Not dry. Intact. Turgor - normal. LYMPHATIC: No palpable lymph nodes/no lymphedema. MUSCULOSKELETAL: Normal joints with no swelling. Muscle tone is normal. LABS: U/A 2+ Ketone, 1+ bacteria, 3+ protein, creatinine 0.8, BUN 21, ABG pO2 100, CO2 30, pH 7.42 with 98% saturation. Hgb 13.7, hct 39, WBC 15,000 normal differential. The patient had Lyme, Western blot Burdick Spotted all those test in the office. T4 TSH were normal. EGFR 102. Influenza B positive. ASSESSMENT: 1. Flu syndrome with generalized aches and pain 2. Tick bites, duration 2 days 3. Status post right nephrectomy for renal carcinoma 4. Dehydration 5. History of alcohol abuse PLAN: 1. Admit the patient 2. Chest x-ray was negative 3. Counseling for smoking done 4. Lyme disease symptoms discussed, the patient had tick bites just two days ago so Burdick Spotted fever and Lyme is a long shot. The symptoms were discussed with him in detail in case if it happens he can contact his primary MD. 5. Rocephin and Doxycycline. 6. IV fluids for dehydration 7. Tamiflu 75mg twice a day for flu 8. Influenza B 9. The patient also strongly advised to get primary physician. 10.The patient was given Thiamin 100mg in the IV bag along with Folic acid, Multivitamins and Sodium Chloride solution to be infused 125cc per hour. 11. Also watch him for DT's. 12. Was told not to take any nonsteroidal anti-inflammatory as he has one kidney with history of right nephrectomy for renal cell carcinoma. Nonsteroidal anti-inflammatory with this side effect discussed with him at great length. The patient is intelligent and he acknowledged the understanding of it. CONDITION: Stable. TIME SPENT: More than 70 minutes. MTDD
== END 2018-01-31 10:54 | disposition home or self-care (01) | DRG 195 ==
LOC: ED 08:07 → UNDOADMIN 10:18 → MEDSURG A 10:18
PROVIDERS: ADMIT Internal Medicine; ATTEND Internal Medicine
DX: J10.1 Influenza due to other identified influenza virus with other respiratory manifestations (principal); S30.861A Insect bite (nonvenomous) of abdominal wall, initial encounter; F10.10 Alcohol abuse, uncomplicated; F15.90 Other stimulant use, unspecified, uncomplicated; F31.9 Bipolar disorder, unspecified; F41.8 Other specified anxiety disorders; F90.9 Attention-deficit hyperactivity disorder, unspecified type; J44.9 Chronic obstructive pulmonary disease, unspecified; M19.90 Unspecified osteoarthritis, unspecified site; N20.0 Calculus of kidney; R53.1 Weakness; F17.210 Nicotine dependence, cigarettes, uncomplicated; Z85.528 Personal history of other malignant neoplasm of kidney; Z90.5 Acquired absence of kidney; W57.XXXA Bitten or stung by nonvenomous insect and other nonvenomous arthropods, initial encounter
CPT/HCPCS: 36415; 80053; 80306; 80307; 81001; 82803; 83605; 84145; 84439; 84443; 85025; 86617; 86757; 87040; 87086; 87502; 87651; 87798; 93005; 93010; 96365; 96366; 96375; 99284